=== PATIENT | female | born 2000 | race Caucasian/White ===

== ENCOUNTER 2022-12-30 21:34 | Emergency (ER) | payer BC ==
[~2022-12-30] VITALS: Ht 154.9 cm; Wt 52.6 kg
--- NOTE | 2022-12-30 21:54 | NUR ---
[place] yesterday, has frequent UTI infection and bladder pain.
--- NOTE | 2022-12-30 22:00 | NUR ---
PT AMB TO [facility]. REPORT RECIEVED FROM [facility] [place].
[2022-12-30] MEDS ORDERED: ONDANSETRON 4 MG/2 ML VIAL IV ONE (22:15)
[2022-12-30] MEDS ORDERED: CEFTRIAXONE 1 G in IV DEXTROSE 5% 50 ML IV ONE (22:15)
[2022-12-30] MEDS ORDERED: IV NS 1000 ML 1,000 ML IV ONE (22:15)
[2022-12-30 22:30] LABS: HEMATOCRIT 36.9 % (31.2-41.9); MEAN CORPUSCULAR HEMOGLOBIN 30.3 uug (24.7-32.8); MEAN CORPUSCULAR VOLUME 89.4 fL (75.5-95.3); PLATELET COUNT (AUTO) 179 K/uL (179-408)
[2022-12-30] MEDS ORDERED: CEFTRIAXONE /D5W 50ML IVPB **ER PYXIS IV ONE (22:30)
[2022-12-30] MEDS ORDERED: ONDANSETRON 4 MG/2 ML VIAL ONE (22:30)
--- NOTE | 2022-12-30 22:35 | NUR ---
PT UP OOB AMB TO BR WITH STEADY GAIT. URINE COLLECTED/ SENT TO LAB.
[2022-12-30 22:40] LABS: CREATININE 0.8 mg/dL (0.6-1.3); POTASSIUM 3.4 mmol/L (3.5-5.1)
[2022-12-30 22:54] LABS: BILIRUBIN,DIRECT 0.3 mg/dL (0.0-0.2); TOTAL PROTEIN, SERUM 7.4 g/dL (6.4-8.2)
[2022-12-30 23:25] LABS: *BILIRUBIN,URIN NEGATIVE (NEGATIVE); *BLOOD, URINE NEGATIVE (NEGATIVE); *CLARITY,URINE CLEAR (CLEAR); *COLOR,URINE YELLOW (YELLOW); *KETONES,URINE NEGATIVE (NEGATIVE); *UROBILINOGEN,URINE 0.2 E.U./dl (NORMAL); LEUKOCYTE ESTERASE ,URINE NEGATIVE (NEGATIVE); NITRITE, URINE NEGATIVE (NEGATIVE); UGLUCOSE NEGATIVE (NEGATIVE)
[2022-12-30 23:26] LABS: *URINE HCG, QUAL NEGATIVE (NEGATIVE)
[2022-12-31] MEDS ORDERED: IOHEXOL 300MG/ML 100 ML INFUS..BTL ONE (01:08)
[2022-12-31] MEDS ORDERED: IV NORMAL SALINE 250 ML IV ONE (01:09)
[2022-12-31] MEDS ORDERED: SWABABLE VALVE TRANSFER SET EA MC ONE (01:09)
[2022-12-31] MEDS ORDERED: MORPHINE SULFATE 4 MG/1 ML DISP.SYRIN IV ONE (01:45)
[2022-12-31 03:22] LABS: *BILIRUBIN,URIN NEGATIVE (NEGATIVE); *CLARITY,URINE CLEAR (CLEAR); *COLOR,URINE YELLOW (YELLOW); *KETONES,URINE NEGATIVE (NEGATIVE); *UROBILINOGEN,URINE 0.2 E.U./dl (NORMAL); LEUKOCYTE ESTERASE ,URINE NEGATIVE (NEGATIVE); NITRITE, URINE NEGATIVE (NEGATIVE); PH,URINE 7.5 (5.0-8.0); UGLUCOSE NEGATIVE (NEGATIVE)
[2022-12-31 03:23] LABS: *BLOOD, URINE NEGATIVE (NEGATIVE)
[2022-12-31 03:59] LABS: *BILIRUBIN,URIN NEGATIVE (NEGATIVE); *CLARITY,URINE CLEAR (CLEAR); *COLOR,URINE YELLOW (YELLOW); *KETONES,URINE TRACE (NEGATIVE); *UROBILINOGEN,URINE 0.2 E.U./dl (NORMAL); LEUKOCYTE ESTERASE ,URINE NEGATIVE (NEGATIVE); NITRITE, URINE NEGATIVE (NEGATIVE); PH,URINE 6.5 (5.0-8.0); UGLUCOSE NEGATIVE (NEGATIVE)
[2022-12-31 04:33] LABS: *BLOOD, URINE TRACE (NEGATIVE); BACTERIA,URINE NONE SEEN /HPF (NONE SEEN); SQUAMOUS EPITHELIAL CELL,UR FEW /HPF (NONE SEEN); WBC,URINE NONE SEEN /HPF (0-3)
[2022-12-31 04:34] LABS: RBC,URINE 0-3 /HPF (0-3)
[2022-12-31] MEDS ORDERED: CEPH500C2 PO (05:07)
--- NOTE | 2022-12-31 05:11 | NUR ---
ACI GIVEN, REMAINS STABLE FOR DISCHARGE HOME WITH DAD, STATES UNDERSTANDING.
[2022-12-31 05:13] VITALS: BP 101/69; O2SAT 98
== END 2022-12-31 05:13 | disposition home or self-care (01) ==
LOC: ER 21:34
DX: N10 Acute pyelonephritis (principal)
CPT/HCPCS: 99285; 74176; 96365; 80076; 80048; 81003 ×2; 84703; 83690; 85025; 36415; 83605; 87040; 81001; J0696; J2405; J7040; Q9967; A4663